=== PATIENT | female | born 1955 | race Caucasian/White ===

== ENCOUNTER 2016-04-30 05:38 | Inpatient (IN) | payer BC ==
[2016-04-22 20:26] LABS: BASOPHILS 0.7 %; BASOPHILS ABSOLUTE 0.06 10/3/uL (0.0-0.16); EOSINOPHILS 2.5 %; HEMOGLOBIN 15.2 g/dL (12.0-16.0); IMMATURE GRANULOCYTES 0.1 %; IMMATURE GRANULOCYTES ABSOLUTE 0.01 10/3/uL (0.0-0.11); LYMPHOCYTES 24.3 %; LYMPHOCYTES ABSOLUTE 1.98 10/3/uL (0.67-4.30); MEAN CORPUS HGB CONC 32.3 g/dL (32.0-36.0); MEAN CORPUSCULAR HEMOGLOB 31.7 pg (26.0-34.0); MEAN CORPUSCULAR VOLUME 98.1 fL (80-100); MEAN PLATELET VOLUME 12.4 fL (9.2-13.0); MONOCYTES 5.2 %; MONOCYTES ABSOLUTE 0.42 10/3/uL (0.21-1.20); NEUTROPHILS 67.2 %; NEUTROPHILS ABSOLUTE 5.48 10/3/uL (2.02-8.40); PLATELET COUNT 211 10/3/uL (150-400); RBC DISTRIBUTION WIDTH 13.3 % (12.0-16.0); RED CELL COUNT 4.79 10/6/uL (4.0-5.6); WHITE BLOOD CELLS 8.2 10/3/uL (4.5-10.5)
[2016-04-22 20:27] LABS: MANUAL DIFF NO %
[2016-04-22 20:33] LABS: INTERNATIONAL NORMAL RATI 1.1 UNITS (-); PARTIAL THROMBO TIME 32.4 SEC (22.5-37.2); PROTIME (NOT ORD) 13.9 SEC (12.0-14.5)
[2016-04-22 20:43] LABS: A/G RATIO 0.9 (0.7-1.9); ALKALINE PHOSPHATASE 111 U/L (45-117); BUN (BLOOD UREA NITROGEN) 18 MG/DL (6-23); CALCIUM, SERUM 9.3 MG/DL (8.5-10.4); CHLORIDE, SERUM 102 MMOL/L (96-112); CO2 (CARBON DIOXIDE) 21 MMOL/L (24-34); CREATININE 1.21 MG/DL (0.55-1.02); GFR AFRICAN AMERICAN 56 ML/MIN (>=60); GFR NON AFRICAN AMERICAN 48 ML/MIN (>=60); GLOBULIN 4.7 G/DL (2.5-4.1); GLUCOSE, SERUM 137 MG/DL (60-99); POTASSIUM, SERUM 4.6 MMOL/L (3.5-5.3); SGOT(AST) 158 U/L (5-40); SGPT(ALT) 108 U/L (5-65); SODIUM, SERUM 139 MMOL/L (135-148); TOTAL BILIRUBIN 1.3 MG/DL (0-1.2); TOTAL PROTEIN 8.7 G/DL (6.0-8.5)
--- NOTE | ~2016-04-30 | OP ---
Record Of Operation [place] [id number] [place]. [address] NAME: LUX MAXWELL : 55 STATUS : ADM IN PAT#: [id number] AGE: 61 ADM/REG DATE : 04/30/16 MR#: [id number] REPORT SERV DATE: 04/30/16 DICTATED BY: LUZ MARIA WITT DATE: 04/30/16 REPORT STATUS : Draft TRANSCRIBED BY: MODVinayak DATE: 04/30/16 DATE OF PROCEDURE: 04/30/2016 PREOPERATIVE DIAGNOSES: 1. Chronic cholecystitis with cholelithiasis. 2. Right renal mass. 3. Hypertension. 4. Coronary artery disease. 5. Hyperlipidemia. 6. Diabetes mellitus. 7. Morbid obesity. POSTOPERATIVE DIAGNOSES: 1. Chronic cholecystitis with cholelithiasis. 2. Right renal mass. 3. Hypertension. 4. Coronary artery disease. 5. Hyperlipidemia. 6. Diabetes mellitus. 7. Morbid obesity. PROCEDURE: Laparoscopic cholecystectomy. ANESTHESIA: General. SURGEON: Luz Maria Witt M.D. HOT DIP PLATING SUPERVISOR: Airam. COMPLICATIONS: None. DRAINS: None. ESTIMATED BLOOD LOSS: 20 mL. FINDINGS: The patient was noted to have a thickened gallbladder wall with pericholecystic inflammation and edema consistent with cholelithiasis with chronic cholecystitis. OPERATIVE TECHNIQUE: The patient was brought to the operating room and placed on the table in supine position. She had preoperative antibiotics. She had sequential hose in place. She voided prior to procedure. She underwent general endotracheal anesthesia and was prepped and draped in a sterile fashion. A time-out was completed. Local anesthesia was instilled to the right paramedian skin. A 15 blade knife was used to make an incision just to the right of the umbilicus and the skin and fascia were elevated and a Veress needle was inserted. A 15 mm pneumoperitoneum was obtained. An 11 mm trocar was inserted into the abdomen followed by laparoscope. There was no evidence of Veress or trocar injury. The Record Of Operation [facility] [address] [place]. [address] NAME: LUX MAXWELL : 55 STATUS : ADM IN PAT#: [id number] AGE: 61 ADM/REG DATE : 04/30/16 MR#: [id number] REPORT SERV DATE: 04/30/16 DICTATED BY: LUZ MARIA WITT DATE: 04/30/16 REPORT STATUS : Draft TRANSCRIBED BY: MODL DATE: 04/30/16 patient was then placed in reverse Trendelenburg and rolled to the left. An 11 mm subxiphoid two 5 mm right upper quadrant trocars were placed under direct visualization. The gallbladder and fundus were grasped and elevated over the liver edge after it was aspirated since it was so distended. The patient was noted to have a thickened gallbladder wall and the infundibulum was then retracted. There was contraction of the gallbladder to the duodenum and these adhesions were taken down using blunt dissection and the duodenum was dissected away from the hepatic fossa. The infundibulum was then retracted inferolaterally and careful blunt dissection and electrocautery hook and hydrodissection was then used until the cystic artery was seen. It was carefully dissected on the gallbladder wall and encircled, clipped twice proximally, and cauterized distally. The cystic duct was then carefully dissected away from the common bile duct and dissected until it was seen for several centimeters. It had been contracted and angulated and these adhesions were completely mobilized. The cystic duct was then clipped twice proximally and distally and divided between the clips without encroachment of the common bile duct. The gallbladder was then removed from the fossa using electrocautery hook, placed in a specimen bag, and removed through the periumbilical trocar site. The laparoscope was inserted. Examination of the hepatic fossa noted to be hemostatic. The clips were noted to be intact. There was no evidence of any bleeding. The patient was then prepped and draped for the nephrectomy under the direction of Dr. Munoz. This portion of the procedure was tolerated well. /KASEY Luz Maria Witt M.D. / [id number] CC: Aleksandra Downey M.D.
--- NOTE | ~2016-04-30 | HP ---
History And Physical [address] [place]. [address] NAME: LUX MAXWELL : 55 STATUS : PRE IN PAT#: [id number] AGE: 61 ADM/REG DATE : MR#: [id number] REPORT SERV DATE: 04/30/16 DICTATED BY: MICHAEL MCDERMOTT DATE: 04/29/16 REPORT STATUS : Draft TRANSCRIBED BY: MODL DATE: 04/29/16 DATE OF ADMISSION: 04/30/2016 CHIEF COMPLAINT: Right renal mass. HISTORY OF PRESENT ILLNESS: A 61-year-old white female, diagnosed with a 5 cm right lower pole renal mass most likely a renal cell carcinoma. She also has cholelithiasis. Options regarding management of her renal mass were discussed with the patient. She decided to have a laparoscopic right nephrectomy. She will also have cholecystectomy at the same time. PAST MEDICAL HISTORY: Hypertension, sleep apnea, gout, COPD, and diabetes mellitus. PAST SURGICAL HISTORY: [place] teeth removal, tubal ligation, and hip replacement x2. MEDICATIONS: Propranolol, glimepiride, lisinopril, and citalopram. ALLERGIES: NO KNOWN DRUG ALLERGIES. SOCIAL HISTORY: She reports half a pack a day smoker for 30+ years. She also reports moderate alcohol use. FAMILY HISTORY: Urolithiasis and breast cancer. REVIEW OF SYSTEMS: Cat-scratch fever in the past, shortness of breath, depression, back pain, and dizzy spells. She wears contact lenses. PHYSICAL EXAMINATION: GENERAL: Shows a well-developed, well-nourished, white female weighing 149 pounds. VITAL SIGNS: Stable. HEENT: Sclerae anicteric. NECK: Supple. LUNGS: Some distant breath sounds bilaterally. CARDIOVASCULAR: Heart tones are distant. ABDOMEN: Soft and nontender. No palpable abdominal masses. No Ochoa sign. Bladder is not distended. Kidneys are not palpable. LOWER EXTREMITIES: Show no deformities. IMPRESSION: 1. A 5 cm lower pole right renal mass probably renal cell carcinoma. 2. Cholelithiasis. 3. Diabetes mellitus. 4. Chronic obstructive pulmonary disease. 5. Tobacco abuse. PLAN: Laparoscopic right radical nephrectomy and a laparoscopic cholecystectomy (Dr. Conway). History And Physical [address] [place]. [address] NAME: LUX MAXWELL DOB: [birth year] STATUS : PRE IN PAT#: [id number] AGE: 61 ADM/REG DATE : MR#: [id number] REPORT SERV DATE: 04/30/16 DICTATED BY: MICHAEL MCDERMOTT DATE: 04/29/16 REPORT STATUS : Draft TRANSCRIBED BY: MODL DATE: 04/29/16 Potential complications of bleeding, infection, renal failure, and injury to adjacent structures, renal failure including the need for dialysis, and injury to adjacent structures such as liver, diaphragm, pleura, long, colon, intestine, blood vessels, and nerves have all been explained to the patient. She both manually and verbally consents to proceed. PF/MODL Michael Mcdermott M.D. / [id number] CC: Aleksandra Downey M.D.
--- NOTE | ~2016-04-30 | CN ---
Consultation Report [facility] [address] [place]. [address] NAME: LUX MAXWELL : 55 STATUS : ADM IN PAT#: [id number] AGE: 61 ADM/REG DATE : 04/30/16 MR#: [id number] REPORT SERV DATE: 05/06/16 DICTATED BY: KYLE KELLOGG DATE: 05/05/16 REPORT STATUS : Draft TRANSCRIBED BY: MODVinayak DATE: 05/05/16 INFECTIOUS DISEASE CONSULT DATE OF CONSULTATION: REASON FOR CONSULT: Postoperative right abdominal wall cellulitis. HISTORY OF PRESENT ILLNESS: This is a 61 years old white lady with history of obesity, diabetes, hypertension, sleep apnea, chronic back pain, bilateral hip replacements, fatty liver, who was found to have a right renal mass in 2016. On the 04/30/2016, she had an elective surgery. At the same time, she had a laparoscopic cholecystectomy as well as laparoscopic right nephrectomy. An incision was needed to completely extract the kidney. She had Marcaine pain catheter put at the site. She received Ancef at surgery time. A urine culture on the day of surgery was negative. The pathology showed renal cell carcinoma and chronic cholecystitis. Postop, she had some renal insufficiency that almost resolved. Yesterday, it was noted that she had some induration of the right abdominal wall as well as drainage at the previous Marcaine catheter site. Munoz catheter and this catheter were removed on the 05/03/2016. The blood cultures were done and the culture of this drainage was done, and she was started on vancomycin and cefepime. So far that those cultures are either pending or negative. She has been afebrile. Her creatinine continued to improve, now it is 1.2. She has no leukocytosis. WBC of 6. She is on 2 L of oxygen. She reports some abdominal soreness postop, but when she stands up or sits up, she has a pressure in the lower abdomen, like things are shifting downwards. She had bowel movements which initially were really loose and now are softer or more formed. She has no problems urinating, no dysuria. She had no nausea or vomiting. She is on chronic pain medications. PAST MEDICAL HISTORY: As I mentioned above plus history of gout, tubal ligation. ALLERGIES: NONE. SOCIAL HISTORY: She lives with her sister. She is disabled. She quit smoking. She has one cat. FAMILY HISTORY: Positive for cancer. CURRENT MEDICATIONS: Include vancomycin and cefepime, milk of magnesia, propranolol, Celexa, insulin. PHYSICAL EXAMINATION: GENERAL: She is alert, no obvious distress. No oral thrush. Right breast with a small superficial nodular lesion that is about 1 cm. Consultation Report [place] [id number] [place]. [address] NAME: LUX MAXWELL : 55 STATUS : ADM IN PAT#: [id number] AGE: 61 ADM/REG DATE : 04/30/16 MR#: [id number] REPORT SERV DATE: 05/06/16 DICTATED BY: KYLE KELLOGG DATE: 05/05/16 REPORT STATUS : Draft TRANSCRIBED BY: KASEY DATE: 05/05/16 ABDOMEN: Distended with hypoactive bowel sounds. There is some reddish discoloration of the right lower quadrant, a kind of lateral to the incision. Inferior to the red area, there is bruised area. Otherwise, no skin rash, no drainage. The previous pain catheter site, the dressing has some spotting, but I could not see any active leakage at the time of my exam. EXTREMITIES: Feet without lesions. Left elbow scar from previous infection, 2013. LABORATORY WORK: Creatinine 1.2. WBC 6, hemoglobin 11. ASSESSMENT AND PLAN: 1. Postoperative right abdominal wall induration and ecchymosis. I cannot rule out some degree of infectious cellulitis. 2. Status post laparoscopic right nephrectomy and cholecystectomy on the 04/30/2016. 3. Some abdominal distention with hypoactive bowel sounds, but positive bowel movements. 4. She had some drainage yesterday at the Marcaine catheter site, it seems better today. 5. History of obesity, diabetes, hypertension sleep apnea, and bilateral hip replacements. She is on empiric vancomycin and cefepime, pending cultures. A CT scan of the abdomen pelvis was ordered and is pending. I will follow up these results and I discussed with the patient. DMITRI/KASEY Kyle Kellogg M.D. / [id number] CC: Aleksandra Downey Jr., M.D.
--- NOTE | ~2016-04-30 | OP ---
Record Of Operation [facility] [address] [place]. [address] NAME: LUX MAXWELL : 55 STATUS : ADM IN PAT#: [id number] AGE: 61 ADM/REG DATE : 04/30/16 MR#: [id number] REPORT SERV DATE: 05/01/16 DICTATED BY: MICHAEL MCDERMOTT DATE: 04/30/16 REPORT STATUS : Draft TRANSCRIBED BY: MODL DATE: 04/30/16 DATE OF PROCEDURE: 04/30/2016 PREOPERATIVE DIAGNOSIS: A 5 cm right renal mass. OTHER DIAGNOSIS: Cholelithiasis. PROCEDURES: 1. Laparoscopic right nephrectomy (Dr. Mcdermott). 2. Laparoscopic cholecystectomy (Dr. Mcgee). LABOR ECONOMICS PROFESSOR: Gianluca Wright. ANESTHESIA: General and local. BLOOD LOSS: 250 mL. FLUID REPLACEMENT: 3 L of crystalloid, 250 mL albumin. DRAINS: A 16-Icelandic Mcdermott catheter per urethra. INDICATIONS: A 61-year-old white female with a 5 cm right renal mass and symptomatic cholelithiasis technique. The patient was identified and brought to the operating room, administered general anesthetic agent by the Anesthesia Service, and intubated. She was positioned in the supine position. Dr. Ky Mcgee did a laparoscopic cholecystectomy. When complete, he left the skin just stapled, did not closed the fascia. She was repositioned in the right flank elevated, the left flank down. The kidney rest was elevated and table flexed. Her entire abdomen and right flank were re-prepped and redraped in the usual sterile fashion. I removed the melchor from some of the port sites. He had a 12 mm port at approximately 10 cm off the midline. Near the costal margin, I had a 12 mm port at the same distance off midline down at the level of the umbilicus. He had two [address] I used all of his ports and added a 5 mm port in the right lower quadrant of the abdomen. I began by incising the avascular line of Toldt, reflecting the colon medially. Carried this around hepatic flexure. The duodenum was identified and it was reflected medially as well. Near the lower pole of the kidney, I identified the left gonadal vessels and left gonadal vein and the ureter. These were elevated. I dissected along the retroperitoneum, identified the vena cava. The gonadal vein was identified. It was clipped doubly and then divided near the takeoff from the vena cava. I identified the renal hilum. I spent quite a bit of time dissecting out the renal hilum. I stapled across the vein first with a laparoscopic PARESH stapler and stapled across the artery. I then continued my dissection by the upper pole of the kidney from the adrenal gland and coming around the upper pole of the kidney. I then released the kidney laterally. Finally, I stapled the gonadal vessels distally and clipped the ureter. The specimen was then placed into a specimen retrieval bag. I lowered the abdominal pressure and irrigated copiously. Fastidious Record Of Operation [address] [place]. [address] NAME: LUX MAXWELL : 55 STATUS : ADM IN PAT#: [id number] AGE: 61 ADM/REG DATE : 04/30/16 MR#: [id number] REPORT SERV DATE: 05/01/16 DICTATED BY: MICHAEL MCDERMOTT DATE: 04/30/16 REPORT STATUS : Draft TRANSCRIBED BY: KASEY DATE: 04/30/16 hemostasis was achieved. I then removed the 12 mm port. It was cephalad and closed the fascia there with a Durga-Erica endoscopic closure system. I then removed the other ports under low pressure. No port site bleeding was noted. I made a skin incision of approximately 9 cm down around my inferior 5 mm port. I carried this down through the fascia and opened the peritoneal. I delivered the specimen bag out through this defect. I closed the transversus abdominis muscle with a running 0 PDS and then closed the external oblique with running 0 PDS. Marcaine pain catheter was placed between 2 layers and another was placed on palpable layers. Irrigated subcutaneous tissues copiously. I closed the subcutaneous tissue in two layers with 3-0 Vicryl. Skin was closed with 4-0 Monocryl. The other port sites were closed with melchor. Dressings were applied. The patient was awakened and taken to recovery unit in stable and satisfactory condition. PF/MODL Michael Mcdermott M.D. / [id number]
--- NOTE | ~2016-04-30 | CN ---
Consultation Report [facility] [address] [place]. [address] NAME: LUX GOMES : 55 STATUS : ADM IN PAT#: [id number] AGE: 61 ADM/REG DATE : 04/30/16 MR#: [id number] REPORT SERV DATE: 04/30/16 DICTATED BY: GALDINO IGNACIO DATE: 04/30/16 REPORT STATUS : Draft TRANSCRIBED BY: MODL DATE: 04/30/16 NEPHROLOGY CONSULT NOTE DATE OF CONSULTATION: HISTORY OF PRESENT ILLNESS: Ms. Gomes is a 61-year-old white female admitted for right nephrectomy for a tumor in her right kidney by Dr. Munoz and a lap cholecystectomy done at the same time by Dr. Mcgee, and I was consulted for oliguric acute renal failure postop. PAST MEDICAL HISTORY: Obesity with obstructive sleep apnea documented but not wearing a CPAP; history of COPD, not on home O2; chronic hypertension for at least 10 years; hyperlipidemia; gastroesophageal reflux disease; diabetes mellitus, but that was only diagnosed about a year ago; chronic kidney disease with baseline creatinine of 1.21, this was done a week ago, no labs done here today; PIÑA with elevated liver enzymes, quite elevated, followed by the nurse practitioner at the [facility]; strong tobacco history, quit 3 weeks ago; cardiac workup and cardiac clearance obtained with ejection fraction of 65% and no ischemia. She has a chronic history of gout and arthritis, has had bilateral hip replacements thought to be due to avascular necrosis. REVIEW OF SYSTEMS: Her lower extremity has been weak, she says when she stands up, she almost feels like her knees are going out from under her, this been going on for the last week or so; chronic lower back pain; has had an upper respiratory infection for which she ran a fever a week ago but no nausea or vomiting; chronic diarrhea which was made worse by the prep for the surgery today; and chronic arthritis but denies any Advil, Motrin, or Aleve use. She is chronically incontinent of urine but denies having any pedal edema and has significant dyspnea on exertion. SOCIAL HISTORY: Strong tobacco history, quit 3 weeks ago. Strong alcohol history. Lives with her daughter. FAMILY HISTORY: Positive for kidney stones and breast cancer. ALLERGIES: NO KNOWN DRUG ALLERGIES. MEDICATIONS: Her home medications are listed as Tylenol, Celexa, Amaryl, Prinivil, Inderal, and an antibiotic that she was placed on for upper respiratory infection; I am not sure what that is. PHYSICAL EXAMINATION: VITAL SIGNS: Blood pressure 132/82, heart rate 87, respirations 22, temperature afebrile, and 91% saturated on 3 L. GENERAL: She is alert, good historian, in no acute distress. She is complaining of some mild back pain and surgery pain but otherwise unremarkable. Consultation Report [address] [place]. [address] NAME: LUX GOMES : 55 STATUS : ADM IN PAT#: [id number] AGE: 61 ADM/REG DATE : 04/30/16 MR#: [id number] REPORT SERV DATE: 04/30/16 DICTATED BY: GALDINO IGNACIO DATE: 04/30/16 REPORT STATUS : Draft TRANSCRIBED BY: KASEY DATE: 04/30/16 HEENT: Without abnormalities. LUNGS: Clear anteriorly bilaterally. NECK: Supple. She has a nodule on her right breast anteriorly that appears to be an abscess with redness, tenderness, and about the size of a dime; we did not squeeze it or dutch it. ABDOMEN: Soft and tender on the right side. Bowel sounds are present and no rebound. EXTREMITIES: No edema. NEUROLOGIC: Weak pulses in both feet but nonfocal and oriented x3. LABORATORY WORK: I cannot find any lab that was done today except for a blood sugar of 150 done earlier. Preop, on 04/22/2016, sodium was 139, potassium of 4.6, chloride of 102, and CO2 of 21 with a BUN of 18 and creatinine of 1.2. The blood sugar was 137. Albumin was 4.0. SGOT was 158. SGPT was 108 with a total bilirubin of 1.3. White count 8.2, hemoglobin 15, hematocrit 47, and platelet count 211,000. Other repeat lab today is pending. ASSESSMENT: 1. Status post right nephrectomy for suspected renal cell carcinoma by Dr. Munoz. 2. Status post laparoscopic cholecystectomy for cholelithiasis, Dr. Mcgee today. 3. Postoperative oliguric acute renal failure for which I was consulted at 4 o'clock this evening. 4. Obesity with known obstructive sleep apnea, but not wearing CPAP and underlying chronic obstructive pulmonary disease. 5. Diabetes mellitus type 2 but only diagnosed about a year ago. 6. Hypertension for least 10 years, we will hold lisinopril as it may aggravate any renal insufficiency she might have. 7. Non-alcoholic steatohepatitis with elevated liver enzymes, worry about hepatorenal syndrome. 8. Obesity which is going to complicate all her care. PLAN: Because of possible hepatorenal syndrome, we will push fluids and repeat liver enzymes. I have done a bladder scan showing no urine in the bladder so no signs of a Munoz misfunction. She was concerned she may have had some hypotension earlier during surgery or postop, but I cannot find any documented. She did not receive any nonsteroidal antiinflammatories that I can find. She may well be prerenal as she has no edema and she has had a prep for GI. Fluids were given intraoperatively. We will continue fluids postop including a 500 mL normal saline bolus, and I doubt infection, but we will check a procalcitonin level. A bolus of normal saline was ordered. Discussed the case with her RN. She will follow strict I's and O's and call me with today's lab. ZULY/KASEY Galdino Ignacio M.D. Consultation Report [address] [address] NAME: LUX GOMES : 55 STATUS : ADM IN [facility]#: [id number] AGE: 61 ADM/REG DATE : 04/30/16 MR#: [id number] REPORT SERV DATE: 04/30/16 DICTATED BY: GALDINO IGNACIO DATE: 04/30/16 REPORT STATUS : Draft TRANSCRIBED BY: MODL DATE: 04/30/16 / [id number] CC: Casey Mcgee M.D.
--- NOTE | ~2016-04-30 | DS ---
Discharge Summary [facility] [address] [place]. [address] NAME: LUX MAXWELL : 55 STATUS : DIS IN PAT#: [id number] AGE: 61 ADM/REG DATE : 04/30/16 MR#: [id number] REPORT SERV DATE: 05/08/16 DICTATED BY: MICHAEL MUNOZ DATE: 05/07/16 REPORT STATUS : Draft TRANSCRIBED BY: MODL DATE: 05/07/16 ADMISSION DATE: 04/30/2016 DISCHARGE DATE: 05/07/2016 DIAGNOSIS: Left renal mass. Final pathology, left renal cell carcinoma, pT1, grade 1 Nx. OTHER DIAGNOSES: Include postoperative ileus, postoperative wound cellulitis, postoperative oliguria/acute kidney injury, cholelithiasis. PROCEDURES DURING THIS HOSPITALIZATION: Laparoscopic right nephrectomy and laparoscopic cholecystectomy. For complete history of present illness, please see dictated H and P. HOSPITAL COURSE: The patient underwent the above-mentioned procedures. Postoperatively, she had a Munoz catheter draining her bladder. She had a Marcaine pain catheter in place. She made very little urine during the surgery and a nephrology consultation was obtained immediate postoperatively. They discontinued her KAREEM inhibitor and treated her more aggressively with IV fluids. She began to make some urine. On the first postoperative day, her creatinine went from a preoperative level of 1.21 to 2.32. With treatment and Nephrology's help, her creatinine level slowly drifted down. At the time of discharge, her creatinine was down to 1.19. She was placed on clear liquid diet. She developed a postoperative ileus. She never needed a nasogastric tube, but took her several days of basic bowel rest to get her bowel function to return. She began ambulating. Part of the problem was using the narcotics was slowing her bowel function, but eventually her bowels began functioning properly and she was advanced to a diabetic diet. Finally, on around postop day three or four, she began to develop some redness around the site, where her Marcaine pain catheters had been inserted. The erythema and swelling were not really around the wound, but lateral to the area through which the pain catheters travel. An infectious disease consultation was obtained and they started her on vancomycin and cefepime. She remained afebrile. There did appear to be some improvement in the redness, but the induration of the wound remained the same. They ordered a CT scan of the abdomen and pelvis, and it showed some gas in the deep tissues of the abdominal wall, but no collections or anything suspicious inside the abdomen. It was thought that the wound infection may be developing. She was kept on the antibiotics, but eventually decided that if an infection was going to fester and evolve from deep within the wound, placing her on intravenous vancomycin probably was not going to stop that. We therefore decided to discharge her home on Keflex 500 p.o. t.i.d. She will follow up with Dr. Munoz in three days for wound inspection. She had been warned that she may ultimately need this wound opened. She is certainly aware of that and willing and agreeable to go home. Discharge medications are hydrocodone 7.5/325 one p.o. q.4 hours p.r.n., dispense #21 and Keflex 500 mg p.o. t.i.d. x7 days. Discharge Summary [address] [address] NAME: LUX MAXWELL : 55 STATUS : DIS IN PAT#: [id number] AGE: 61 ADM/REG DATE : 04/30/16 MR#: [id number] REPORT SERV DATE: 05/08/16 DICTATED BY: MICHAEL MUNOZ DATE: 05/07/16 REPORT STATUS : Draft TRANSCRIBED BY: KASEY DATE: 05/07/16 IVELISSE/KASEY Michael Munoz M.D. / [id number] CC: Aleksandra Downey M.D.
[~2016-04-30 05:38] MED LIST: AMARYL2 PO; AUG875 PO; B COMPLETE PO; CELEXA20 PO; DIL4TAB PO; ENDOCET1 TA4 PO; FERROUS SULF325 M1 PO; FISH-EPA1000 MG PO; FLEX PO; HCTZ25B PO; HYDROCHLOROT25 MG PO; INDE80 PO; LORT7 PO; METHOC750B PO; MOBIC15 MG PO; NEUR300 PO; PCET PO; PRAVACHOL40 MG PO; PRIN20 PO; REQUIP1 PO; T PO; V2 PO; ZANTAC150 MG PO; ZYDONE1 TA1 PO; ZYVOXPO PO
[2016-04-30 18:50] LABS: BASOPHILS 0.2 %; BASOPHILS ABSOLUTE 0.02 10/3/uL (0.0-0.16); EOSINOPHILS 0.3 %; EOSINOPHILS ABSOLUTE 0.03 10/3/uL (0.0-0.53); HEMOGLOBIN 12.8 g/dL (12.0-16.0); IMMATURE GRANULOCYTES 0.3 %; IMMATURE GRANULOCYTES ABSOLUTE 0.03 10/3/uL (0.0-0.11); LYMPHOCYTES 16.7 %; LYMPHOCYTES ABSOLUTE 1.87 10/3/uL (0.67-4.30); MEAN CORPUS HGB CONC 32.2 g/dL (32.0-36.0); MEAN CORPUSCULAR VOLUME 96.4 fL (80-100); MEAN PLATELET VOLUME 10.9 fL (9.2-13.0); MONOCYTES ABSOLUTE 0.45 10/3/uL (0.21-1.20); NEUTROPHILS 78.5 %; NEUTROPHILS ABSOLUTE 8.83 10/3/uL (2.02-8.40); PLATELET COUNT 211 10/3/uL (150-400); RBC DISTRIBUTION WIDTH 13.8 % (12.0-16.0); RED CELL COUNT 4.13 10/6/uL (4.0-5.6); WHITE BLOOD CELLS 11.2 10/3/uL (4.5-10.5)
[2016-04-30 18:54] LABS: HEMATOCRIT 39.8 % (36.0-48.0); MANUAL DIFF NO %
[2016-04-30 19:13] LABS: ALBUMIN 3.4 G/DL (3.5-5.0); CHLORIDE, SERUM 101 MMOL/L (96-112); CO2 (CARBON DIOXIDE) 24 MMOL/L (24-34); GLUCOSE, SERUM 131 MG/DL (60-99); POTASSIUM, SERUM 5.5 MMOL/L (3.5-5.3); SGOT(AST) 134 U/L (5-40); SGPT(ALT) 87 U/L (5-65); SODIUM, SERUM 137 MMOL/L (135-148); TOTAL BILIRUBIN 0.9 MG/DL (0-1.2); TOTAL PROTEIN 7.3 G/DL (6.0-8.5)
[2016-04-30 19:15] LABS: ALKALINE PHOSPHATASE 85 U/L (45-117); BUN (BLOOD UREA NITROGEN) 25 MG/DL (6-23); CALCIUM, SERUM 8.2 MG/DL (8.5-10.4); CREATININE 2.32 MG/DL (0.55-1.02); DIRECT BILIRUBIN 0.3 MG/DL (0.0-0.4); GFR AFRICAN AMERICAN 25 ML/MIN (>=60); GFR NON AFRICAN AMERICAN 22 ML/MIN (>=60); INDIRECT BILIRUBIN(NOT ORDER) 0.6 MG/DL (0.1-0.9); PHOSPHORUS, SERUM 6.8 MG/DL (2.5-4.5)
[2016-04-30 20:25] LABS: ASCORBIC ACID (UR NOT ORDER) NEG (NEG); BILIRUBIN, URINE NEGATIVE (NEG); KETONE, URINE NEGATIVE (NEG); LEUKOCYTE ESTERASE(NOT OR MOD (NEG); WBC (NOT ORDERED) (RFLEX) 9 (0-5)
[2016-05-01 05:04] LABS: BASOPHILS 0.3 %; BASOPHILS ABSOLUTE 0.02 10/3/uL (0.0-0.16); EOSINOPHILS 1.4 %; EOSINOPHILS ABSOLUTE 0.11 10/3/uL (0.0-0.53); HEMATOCRIT 37.6 % (36.0-48.0); HEMOGLOBIN 11.9 g/dL (12.0-16.0); IMMATURE GRANULOCYTES 0.4 %; IMMATURE GRANULOCYTES ABSOLUTE 0.03 10/3/uL (0.0-0.11); INTERNATIONAL NORMAL RATI 1.2 UNITS (-); LYMPHOCYTES ABSOLUTE 1.65 10/3/uL (0.67-4.30); MANUAL DIFF NO %; MEAN CORPUS HGB CONC 31.6 g/dL (32.0-36.0); MEAN CORPUSCULAR HEMOGLOB 31.6 pg (26.0-34.0); MONOCYTES 7.3 %; MONOCYTES ABSOLUTE 0.57 10/3/uL (0.21-1.20); NEUTROPHILS 69.6 %; NEUTROPHILS ABSOLUTE 5.48 10/3/uL (2.02-8.40); PARTIAL THROMBO TIME 31.8 SEC (22.5-37.2); PLATELET COUNT 165 10/3/uL (150-400); PROTIME (NOT ORD) 15.1 SEC (12.0-14.5); RBC DISTRIBUTION WIDTH 13.8 % (12.0-16.0); RED CELL COUNT 3.76 10/6/uL (4.0-5.6); WHITE BLOOD CELLS 7.9 10/3/uL (4.5-10.5)
[2016-05-01 05:21] LABS: A/G RATIO 0.7 (0.7-1.9); ALBUMIN 2.9 G/DL (3.5-5.0); ALKALINE PHOSPHATASE 77 U/L (45-117); BUN (BLOOD UREA NITROGEN) 26 MG/DL (6-23); CALCIUM, SERUM 7.5 MG/DL (8.5-10.4); CHLORIDE, SERUM 99 MMOL/L (96-112); CO2 (CARBON DIOXIDE) 24 MMOL/L (24-34); CREATININE 2.18 MG/DL (0.55-1.02); GFR AFRICAN AMERICAN 27 ML/MIN (>=60); GFR NON AFRICAN AMERICAN 24 ML/MIN (>=60); GLUCOSE, SERUM 143 MG/DL (60-99); PHOSPHORUS, SERUM 5.9 MG/DL (2.5-4.5); POTASSIUM, SERUM 4.5 MMOL/L (3.5-5.3); SGOT(AST) 105 U/L (5-40); SGPT(ALT) 62 U/L (5-65); SODIUM, SERUM 136 MMOL/L (135-148); TOTAL BILIRUBIN 0.9 MG/DL (0-1.2); TOTAL PROTEIN 6.9 G/DL (6.0-8.5); TROPONIN I <0.02 NG/ML (<0.05)
[2016-05-02 04:57] LABS: BASOPHILS 0.1 %; BASOPHILS ABSOLUTE 0.01 10/3/uL (0.0-0.16); EOSINOPHILS 1.3 %; EOSINOPHILS ABSOLUTE 0.11 10/3/uL (0.0-0.53); HEMATOCRIT 36.7 % (36.0-48.0); IMMATURE GRANULOCYTES 0.5 %; IMMATURE GRANULOCYTES ABSOLUTE 0.04 10/3/uL (0.0-0.11); LYMPHOCYTES 13.5 %; LYMPHOCYTES ABSOLUTE 1.15 10/3/uL (0.67-4.30); MEAN CORPUS HGB CONC 32.7 g/dL (32.0-36.0); MEAN CORPUSCULAR HEMOGLOB 32.1 pg (26.0-34.0); MEAN CORPUSCULAR VOLUME 98.1 fL (80-100); MONOCYTES 8.9 %; MONOCYTES ABSOLUTE 0.76 10/3/uL (0.21-1.20); NEUTROPHILS 75.7 %; NEUTROPHILS ABSOLUTE 6.46 10/3/uL (2.02-8.40); PLATELET COUNT 169 10/3/uL (150-400); RBC DISTRIBUTION WIDTH 13.6 % (12.0-16.0); RED CELL COUNT 3.74 10/6/uL (4.0-5.6); WHITE BLOOD CELLS 8.5 10/3/uL (4.5-10.5)
[2016-05-02 05:00] LABS: MANUAL DIFF NO %
[2016-05-02 05:07] LABS: BUN (BLOOD UREA NITROGEN) 23 MG/DL (6-23); CHLORIDE, SERUM 98 MMOL/L (96-112); CO2 (CARBON DIOXIDE) 24 MMOL/L (24-34); CREATININE 2.05 MG/DL (0.55-1.02); GFR AFRICAN AMERICAN 30 ML/MIN (>=60); GFR NON AFRICAN AMERICAN 26 ML/MIN (>=60); GLUCOSE, SERUM 145 MG/DL (60-99); POTASSIUM, SERUM 4.3 MMOL/L (3.5-5.3); SODIUM, SERUM 135 MMOL/L (135-148)
[2016-05-02 05:13] LABS: PHOSPHORUS, SERUM 3.9 MG/DL (2.5-4.5)
[2016-05-03 06:32] LABS: BASOPHILS 0.2 %; BASOPHILS ABSOLUTE 0.02 10/3/uL (0.0-0.16); EOSINOPHILS 1.8 %; EOSINOPHILS ABSOLUTE 0.15 10/3/uL (0.0-0.53); HEMATOCRIT 36.7 % (36.0-48.0); HEMOGLOBIN 11.7 g/dL (12.0-16.0); IMMATURE GRANULOCYTES 0.5 %; IMMATURE GRANULOCYTES ABSOLUTE 0.04 10/3/uL (0.0-0.11); LYMPHOCYTES 15.8 %; MEAN CORPUS HGB CONC 31.9 g/dL (32.0-36.0); MEAN CORPUSCULAR HEMOGLOB 31.6 pg (26.0-34.0); MEAN CORPUSCULAR VOLUME 99.2 fL (80-100); MEAN PLATELET VOLUME 10.7 fL (9.2-13.0); MONOCYTES ABSOLUTE 0.66 10/3/uL (0.21-1.20); NEUTROPHILS 73.7 %; NEUTROPHILS ABSOLUTE 6.08 10/3/uL (2.02-8.40); PLATELET COUNT 189 10/3/uL (150-400); RBC DISTRIBUTION WIDTH 13.6 % (12.0-16.0); WHITE BLOOD CELLS 8.3 10/3/uL (4.5-10.5)
[2016-05-03 06:42] LABS: MANUAL DIFF NO %
[2016-05-03 06:46] LABS: ALBUMIN 2.8 G/DL (3.5-5.0); BUN (BLOOD UREA NITROGEN) 26 MG/DL (6-23); CHLORIDE, SERUM 99 MMOL/L (96-112); CO2 (CARBON DIOXIDE) 28 MMOL/L (24-34); GFR AFRICAN AMERICAN 32 ML/MIN (>=60); GFR NON AFRICAN AMERICAN 28 ML/MIN (>=60); GLUCOSE, SERUM 130 MG/DL (60-99); PHOSPHORUS, SERUM 3.9 MG/DL (2.5-4.5); POTASSIUM, SERUM 4.9 MMOL/L (3.5-5.3); SODIUM, SERUM 137 MMOL/L (135-148)
[2016-05-03 06:47] LABS: CALCIUM, SERUM 9.1 MG/DL (8.5-10.4)
[2016-05-04 07:13] LABS: ALBUMIN 2.5 G/DL (3.5-5.0); CALCIUM, SERUM 8.7 MG/DL (8.5-10.4); CHLORIDE, SERUM 100 MMOL/L (96-112); CO2 (CARBON DIOXIDE) 26 MMOL/L (24-34); CREATININE 1.51 MG/DL (0.55-1.02); GFR AFRICAN AMERICAN 43 ML/MIN (>=60); GFR NON AFRICAN AMERICAN 37 ML/MIN (>=60); GLUCOSE, SERUM 137 MG/DL (60-99); SODIUM, SERUM 136 MMOL/L (135-148)
[2016-05-04 07:14] LABS: BUN (BLOOD UREA NITROGEN) 30 MG/DL (6-23); PHOSPHORUS, SERUM 2.2 MG/DL (2.5-4.5); POTASSIUM, SERUM 4.4 MMOL/L (3.5-5.3)
[2016-05-04 16:25] LABS: BASOPHILS 0.3 %; BASOPHILS ABSOLUTE 0.02 10/3/uL (0.0-0.16); EOSINOPHILS 3.1 %; EOSINOPHILS ABSOLUTE 0.24 10/3/uL (0.0-0.53); HEMATOCRIT 35.8 % (36.0-48.0); HEMOGLOBIN 11.5 g/dL (12.0-16.0); IMMATURE GRANULOCYTES 0.4 %; IMMATURE GRANULOCYTES ABSOLUTE 0.03 10/3/uL (0.0-0.11); LYMPHOCYTES 21.2 %; LYMPHOCYTES ABSOLUTE 1.66 10/3/uL (0.67-4.30); MEAN CORPUS HGB CONC 32.1 g/dL (32.0-36.0); MEAN CORPUSCULAR HEMOGLOB 31.8 pg (26.0-34.0); MEAN CORPUSCULAR VOLUME 98.9 fL (80-100); MONOCYTES 10.5 %; MONOCYTES ABSOLUTE 0.82 10/3/uL (0.21-1.20); NEUTROPHILS 64.5 %; NEUTROPHILS ABSOLUTE 5.06 10/3/uL (2.02-8.40); PLATELET COUNT 244 10/3/uL (150-400); RBC DISTRIBUTION WIDTH 13.5 % (12.0-16.0); RED CELL COUNT 3.62 10/6/uL (4.0-5.6); WHITE BLOOD CELLS 7.8 10/3/uL (4.5-10.5)
[2016-05-04 16:28] LABS: MANUAL DIFF NO %
[2016-05-05 04:02] LABS: BASOPHILS 0.3 %; BASOPHILS ABSOLUTE 0.02 10/3/uL (0.0-0.16); EOSINOPHILS 4.4 %; EOSINOPHILS ABSOLUTE 0.29 10/3/uL (0.0-0.53); HEMATOCRIT 34.8 % (36.0-48.0); HEMOGLOBIN 11.1 g/dL (12.0-16.0); IMMATURE GRANULOCYTES 0.6 %; IMMATURE GRANULOCYTES ABSOLUTE 0.04 10/3/uL (0.0-0.11); LYMPHOCYTES 26.9 %; LYMPHOCYTES ABSOLUTE 1.79 10/3/uL (0.67-4.30); MEAN CORPUS HGB CONC 31.9 g/dL (32.0-36.0); MEAN CORPUSCULAR HEMOGLOB 31.8 pg (26.0-34.0); MEAN CORPUSCULAR VOLUME 99.7 fL (80-100); MEAN PLATELET VOLUME 11.1 fL (9.2-13.0); MONOCYTES 10.5 %; NEUTROPHILS 57.3 %; NEUTROPHILS ABSOLUTE 3.81 10/3/uL (2.02-8.40); PLATELET COUNT 221 10/3/uL (150-400); RBC DISTRIBUTION WIDTH 13.6 % (12.0-16.0); RED CELL COUNT 3.49 10/6/uL (4.0-5.6); WHITE BLOOD CELLS 6.7 10/3/uL (4.5-10.5)
[2016-05-05 04:03] LABS: MANUAL DIFF NO %
[2016-05-05 04:10] LABS: BUN (BLOOD UREA NITROGEN) 27 MG/DL (6-23); CALCIUM, SERUM 8.6 MG/DL (8.5-10.4); CHLORIDE, SERUM 102 MMOL/L (96-112); CO2 (CARBON DIOXIDE) 29 MMOL/L (24-34); CREATININE 1.26 MG/DL (0.55-1.02); GFR AFRICAN AMERICAN 53 ML/MIN (>=60); GFR NON AFRICAN AMERICAN 46 ML/MIN (>=60); POTASSIUM, SERUM 4.1 MMOL/L (3.5-5.3); SODIUM, SERUM 139 MMOL/L (135-148)
[2016-05-05 04:13] LABS: GLUCOSE, SERUM 106 MG/DL (60-99)
[2016-05-06 06:57] LABS: BASOPHILS 0.5 %; BASOPHILS ABSOLUTE 0.03 10/3/uL (0.0-0.16); EOSINOPHILS 3.7 %; EOSINOPHILS ABSOLUTE 0.22 10/3/uL (0.0-0.53); HEMATOCRIT 35.6 % (36.0-48.0); HEMOGLOBIN 11.3 g/dL (12.0-16.0); IMMATURE GRANULOCYTES 0.9 %; IMMATURE GRANULOCYTES ABSOLUTE 0.05 10/3/uL (0.0-0.11); LYMPHOCYTES 25.3 %; LYMPHOCYTES ABSOLUTE 1.49 10/3/uL (0.67-4.30); MEAN CORPUS HGB CONC 31.7 g/dL (32.0-36.0); MEAN CORPUSCULAR HEMOGLOB 31.7 pg (26.0-34.0); MEAN CORPUSCULAR VOLUME 99.7 fL (80-100); MEAN PLATELET VOLUME 10.6 fL (9.2-13.0); MONOCYTES 8.7 %; MONOCYTES ABSOLUTE 0.51 10/3/uL (0.21-1.20); NEUTROPHILS 60.9 %; NEUTROPHILS ABSOLUTE 3.58 10/3/uL (2.02-8.40); PLATELET COUNT 208 10/3/uL (150-400); RBC DISTRIBUTION WIDTH 13.7 % (12.0-16.0); RED CELL COUNT 3.57 10/6/uL (4.0-5.6); WHITE BLOOD CELLS 5.9 10/3/uL (4.5-10.5)
[2016-05-06 07:06] LABS: MANUAL DIFF NO %
[2016-05-06 07:18] LABS: A/G RATIO 0.6 (0.7-1.9); ALBUMIN 2.6 G/DL (3.5-5.0); CALCIUM, SERUM 8.8 MG/DL (8.5-10.4); CHLORIDE, SERUM 106 MMOL/L (96-112); CO2 (CARBON DIOXIDE) 26 MMOL/L (24-34); GFR AFRICAN AMERICAN 56 ML/MIN (>=60); GFR NON AFRICAN AMERICAN 49 ML/MIN (>=60); GLOBULIN 4.3 G/DL (2.5-4.1); GLUCOSE, SERUM 115 MG/DL (60-99); POTASSIUM, SERUM 4.1 MMOL/L (3.5-5.3); SGOT(AST) 37 U/L (5-40); SGPT(ALT) 28 U/L (5-65); SODIUM, SERUM 139 MMOL/L (135-148); TOTAL BILIRUBIN 0.5 MG/DL (0-1.2); TOTAL PROTEIN 6.9 G/DL (6.0-8.5)
[2016-05-06 07:19] LABS: ALKALINE PHOSPHATASE 102 U/L (45-117); BUN (BLOOD UREA NITROGEN) 23 MG/DL (6-23)
[2016-05-07 07:17] LABS: BUN (BLOOD UREA NITROGEN) 19 MG/DL (6-23); CALCIUM, SERUM 9.1 MG/DL (8.5-10.4); CHLORIDE, SERUM 103 MMOL/L (96-112); CO2 (CARBON DIOXIDE) 27 MMOL/L (24-34); CREATININE 1.19 MG/DL (0.55-1.02); GFR AFRICAN AMERICAN 57 ML/MIN (>=60); GFR NON AFRICAN AMERICAN 49 ML/MIN (>=60); GLUCOSE, SERUM 118 MG/DL (60-99); POTASSIUM, SERUM 4.2 MMOL/L (3.5-5.3); SODIUM, SERUM 138 MMOL/L (135-148)
[2016-05-07] MEDS ORDERED: K500 PO (08:11)
[2016-05-07] MEDS ORDERED: NORCO1 TA2 PO (08:11)
== END 2016-05-07 11:01 | disposition home or self-care (01) | DRG 657 ==
LOC: SDC/OF 05:38 → PACU 13:38 → 4SO 15:51
PROVIDERS: Internal Medicine Infectious Disease; Nurse Practitioner; Obstetrics & Gynecology; Surgery; Urology
PROC: 0TT04ZZ Resection of Right Kidney, Percutaneous Endoscopic Approach (ICD-10-PCS; principal; 2016-04-30 07:45)
PROC: 0FT44ZZ Resection of Gallbladder, Percutaneous Endoscopic Approach (ICD-10-PCS; 2016-04-30 07:45)
DX: C64.1 Malignant neoplasm of right kidney, except renal pelvis (principal); K80.10 Calculus of gallbladder with chronic cholecystitis without obstruction; N17.9 Acute kidney failure, unspecified; E11.22 Type 2 diabetes mellitus with diabetic chronic kidney disease; Z68.41 Body mass index [BMI] 40.0-44.9, adult; E66.01 Morbid (severe) obesity due to excess calories; L03.311 Cellulitis of abdominal wall; T81.4XXA Infection following a procedure, initial encounter; K91.3 Postprocedural intestinal obstruction; I25.10 Atherosclerotic heart disease of native coronary artery without angina pectoris; E78.5 Hyperlipidemia, unspecified; G47.33 Obstructive sleep apnea (adult) (pediatric); M10.9 Gout, unspecified; I12.9 Hypertensive chronic kidney disease with stage 1 through stage 4 chronic kidney disease, or unspecified chronic kidney disease; N18.9 Chronic kidney disease, unspecified; K75.81 Nonalcoholic steatohepatitis (NASH); G89.29 Other chronic pain; M54.9 Dorsalgia, unspecified; Z87.891 Personal history of nicotine dependence; N99.0 Postprocedural (acute) (chronic) kidney failure; J44.9 Chronic obstructive pulmonary disease, unspecified; E78.00 Pure hypercholesterolemia, unspecified; K21.9 Gastro-esophageal reflux disease without esophagitis; M19.90 Unspecified osteoarthritis, unspecified site
CPT/HCPCS: 36415; 74176; 80048; 80053; 80069; 80076; 81001; 82962; 83735; 84100; 84484; 85025; 85610; 85730; 87040; 87070; 87086; 87205; 88304; 88307; 94640; A9270-GY; J0330; J0690; J0692; J1170; J2250; J2370; J2405; J2710; J3010; J3370; P9045; Q9967